=== PATIENT | female | born 1960 | race Asian ===

== ENCOUNTER 2016-07-18 09:16 | Outpatient (CLI) | payer OTHER | END 2016-07-18 09:17 | disposition home or self-care (01) | LOC: SC 09:16 | PROVIDERS: ATTEND Internal Medicine Pulmonary Disease | DX: G47.33 Obstructive sleep apnea (adult) (pediatric) (principal) | CPT/HCPCS: 99212; 99213 ==

== ENCOUNTER 2017-05-08 11:03 | Outpatient (CLI) | payer OTHER | END 2017-05-08 23:59 | disposition short-term general hospital (02) | LOC: EMS 11:03 | PROVIDERS: ATTEND Surgery | DX: R10.13 Epigastric pain (principal); R07.9 Chest pain, unspecified; M54.9 Dorsalgia, unspecified | CPT/HCPCS: A0425; A0429 ==

== ENCOUNTER 2023-11-03 08:00 | Outpatient (CLI) | payer OTHER | END 2023-11-03 23:59 | disposition home or self-care (01) | LOC: LAB.N 08:00 | PROVIDERS: ATTEND Physician Assistant Medical | DX: R30.0 Dysuria (principal) | CPT/HCPCS: 87086; 87181 ==